=== PATIENT | female | born 1990 | race Caucasian/White ===

== ENCOUNTER 2022-02-17 15:03 | Outpatient (CLI) | payer MEDICAID, SELFPAY ==
[2022-02-19 17:29] LABS: Follicle Stimulating Hormone 6.2 IU/L; Luteinizing Hormone, Serum 14.4 IU/L
[2022-02-20 20:14] LABS: Estradiol Premenol Female 74 pg/mL
[2022-02-21 21:06] LABS: Anti-Mullerian Hormone 10.263 ng/mL (0.176-11.705)
== END 2022-02-17 15:04 | disposition home or self-care (01) ==
PROVIDERS: PCP Obstetrics & Gynecology; Visit Provider Obstetrics & Gynecology
DX: N97.0 Female infertility associated with anovulation (principal)
CPT/HCPCS: 82670; 83001; 83002; 83520

== ENCOUNTER 2022-03-07 15:56 | Outpatient (CLI) | payer MEDICAID, SELFPAY ==
[2022-03-12 08:34] LABS: Progesterone, HPLC-MS/MS < 0.10 ng/mL
== END 2022-03-07 15:57 | disposition home or self-care (01) ==
LOC: NFLDREF 15:57
PROVIDERS: PCP Obstetrics & Gynecology; Visit Provider Obstetrics & Gynecology
DX: Z31.69 Encounter for other general counseling and advice on procreation (principal)
CPT/HCPCS: 84144

== ENCOUNTER 2022-08-15 15:18 | Outpatient (CLI) | payer MEDICAID, SELFPAY ==
[2022-08-15 16:42] LABS: Glucose* 159 mg/dL (60-115)
[2022-08-15 18:38] LABS: Free T4 Free Thyroxine* 0.51 ng/dL (0.70-1.85)
[2022-08-18 05:19] LABS: Insulin, Random 47 uIU/mL
== END 2022-08-15 15:19 | disposition home or self-care (01) ==
PROVIDERS: PCP Obstetrics & Gynecology; Visit Provider Obstetrics & Gynecology
DX: R73.03 Prediabetes (principal); E28.2 Polycystic ovarian syndrome; E03.9 Hypothyroidism, unspecified
CPT/HCPCS: 82947; 83525; 84439; 84443

== ENCOUNTER 2024-09-19 09:54 | Outpatient (CLI) | payer BC, SELFPAY | END 2024-09-19 09:55 | disposition home or self-care (01) | LOC: US 09:57 | PROVIDERS: Visit Provider Obstetrics & Gynecology | DX: Z34.91 Encounter for supervision of normal pregnancy, unspecified, first trimester (principal); O20.9 Hemorrhage in early pregnancy, unspecified; Z3A.01 Less than 8 weeks gestation of pregnancy | CPT/HCPCS: 76817; 84702 ==

== ENCOUNTER 2024-09-19 11:05 | Outpatient (CLI) | payer BC, SELFPAY | END 2024-09-19 11:06 | disposition home or self-care (01) | LOC: NFLDREF 11:06 | PROVIDERS: Visit Provider Physician Assistant | DX: Z34.91 Encounter for supervision of normal pregnancy, unspecified, first trimester (principal) | CPT/HCPCS: 84702 ==

== ENCOUNTER 2024-09-22 10:05 | Outpatient (CLI) | payer BC, SELFPAY | END 2024-09-22 10:06 | disposition home or self-care (01) | LOC: NFLDREF 09-24 06:08 | PROVIDERS: Visit Provider Physician Assistant | DX: Z34.90 Encounter for supervision of normal pregnancy, unspecified, unspecified trimester (principal) | CPT/HCPCS: 84702 ==

== ENCOUNTER 2024-10-03 11:43 | Outpatient (CLI) | payer BC, SELFPAY | END 2024-10-03 11:44 | disposition home or self-care (01) | LOC: NFLDREF 11:44 | PROVIDERS: Visit Provider Registered Nurse | DX: Z01.818 Encounter for other preprocedural examination (principal) | CPT/HCPCS: 80048 ==

== ENCOUNTER 2024-10-13 08:00 | Outpatient (CLI) | payer BC, SELFPAY | END 2024-10-13 08:01 | disposition home or self-care (01) | LOC: NFLDREF 10-14 03:33 | PROVIDERS: Visit Provider Obstetrics & Gynecology | DX: O02.89 Other abnormal products of conception (principal) | CPT/HCPCS: 84702 ==

== ENCOUNTER 2024-10-24 14:00 | Outpatient (CLI) | payer BC, SELFPAY | END 2024-10-24 14:01 | disposition home or self-care (01) | PROVIDERS: Visit Provider Obstetrics & Gynecology | DX: O03.9 Complete or unspecified spontaneous abortion without complication (principal); E03.9 Hypothyroidism, unspecified | CPT/HCPCS: 84439; 84443; 84481; 84702; 86376; 86800 ==

== ENCOUNTER 2024-12-04 09:09 | Outpatient (CLI) | payer BC, SELFPAY | END 2024-12-04 09:10 | disposition home or self-care (01) | LOC: NFLDREF 12-16 07:02 | PROVIDERS: Visit Provider Obstetrics & Gynecology | DX: E03.9 Hypothyroidism, unspecified (principal) | CPT/HCPCS: 84439; 84443 ==

== ENCOUNTER 2025-02-09 11:26 | Outpatient (CLI) | payer BC, SELFPAY ==
--- NOTE | 2025-02-09 11:30 | CRLHL7_ITS ---
For Patients: As a result of the Century Cures Act, medical imaging exams and procedure reports are released immediately into your electronic medical record. You may view this report before your referring provider. If you have questions, please contact your health care provider. OB ULTRASOUND LESS THAN 14 WEEKS, 02/09/2025 CLINICAL HISTORY: Hemorrhage in early . Patient has been bleeding since 12/07/2024. COMPARISON: None. TECHNIQUE: Real time flaherty scale imaging of the fetus was performed. Transvaginal imaging performed. Transvaginal ultrasound of the pelvis was performed to better evaluate the genitourinary organs such as the ovaries and/or endometrium. FINDINGS: IMAGING: Transvaginal. LMP: 11/13/2024. TERRANCE by LMP: 08/20/2025. GA: 12 weeks 4 days. GEST SAC: 1.5 cm. YOLK SAC: N/V. RIGHT OV: N/V. LEFT OV: N/V. Endometrium: 3.0 cm. IMPRESSION: The endometrial cavity is diffusely heterogeneous with nonfocal color Doppler flow suggesting retained products. No pole is present. There is, however, a gestational sac measuring 1.5 cm. No subchorionic hemorrhage. Moises Ramos M.D. Diagnostic Radiologist [email or web address] Transcribed: 1:31 am DW/Dictated by: Moises Ramos MD @ 02/09/2025 12:21:00 PM (Electronically Signed)
== END 2025-02-09 11:27 | disposition home or self-care (01) ==
LOC: US 11:26
PROVIDERS: Visit Provider Physician Assistant
DX: O20.9 Hemorrhage in early pregnancy, unspecified (principal); O03.9 Complete or unspecified spontaneous abortion without complication
CPT/HCPCS: 76817

== ENCOUNTER 2025-02-09 12:01 | Outpatient (CLI) | payer BC, SELFPAY | END 2025-02-09 12:02 | disposition home or self-care (01) | PROVIDERS: Visit Provider Obstetrics & Gynecology | DX: O20.9 Hemorrhage in early pregnancy, unspecified (principal) | CPT/HCPCS: 84702 ==

== ENCOUNTER 2025-02-18 10:30 | Day surgery (SDC) | payer BC, SELFPAY ==
[2025-02-18] MEDS: DOXYCYCLINE HYCLATE 200 MG in 0.9 % SODIUM CHLORIDE 250 ml 250 ML 250 MG IVPB (10:50)
[2025-02-18] MEDS: SODIUM CHLORIDE 0.9 % (FLUSH) 10 ML SYRINGE IVF (10:50)
[2025-02-18] MEDS: LACTATED RINGERS 1000 ML 1,000 ML 100 ML IV (10:50)
[2025-02-18 10:52] VITALS: BP 115/76; PULSE 81; RESP 16; TEMP 36.9; O2SAT 96; BMI 57.1
--- NOTE | 2025-02-18 12:02 | CRLHL7_ITS ---
For Patients: As a result of the Century Cures Act, medical imaging exams and procedure reports are released immediately into your electronic medical record. You may view this report before your referring provider. If you have questions, please contact your health care provider. INDICATION: Preoperative evaluation COMPARISON: 02/09/2025 pelvic ultrasound TECHNIQUE: Sonographic evaluation of the pelvis was performed utilizing flaherty-scale and color Doppler imaging techniques. Transvaginal images were obtained to improve assessment of the adnexa and endometrium. FINDINGS: Contour irregularity at the lower uterine segment is compatible with a history of section. The uterus measures 11 x 6.5 centimeters. The uterus is anteverted. Thickened heterogeneous endometrial stripe measuring up to 2.5 centimeters. Possible slight internal vascular flow detected within the endometrial stripe. A small amount of focal fluid within the endometrial fundus with irregularly angulated borders may represent the remnant gestational sac, but no pole is detected. There are a few small nabothian cysts. There is trace pelvic free fluid. The ovaries were not visualized on the provided images. IMPRESSION: Findings concerning for retained products of conception as described. Dictated by Joselo Caceres MD @ 02/18/2025 12:59:37 PM (Electronically Signed)
--- NOTE | 2025-02-18 12:18 | P.ANES_ITS ---
Anesthesia Charges Start Date/Time Anesthesia Start Date: 02/18/25 Anesthesia Start Time: 12:32 Stop Date/Time Anesthesia Stop Date: 02/18/25 Anesthesia Stop Time: 13:14 Coding CPT Codes CPT Codes: ANESTH INC/MISSED AB PROC - 44093 ([id number]) P3 - PATIENT W/SEVERE SYS DISEASE, QK - HEALTH CARE COACH 2-4 CNCRNT ANES PROC, QX - APPLICATIONS SYSTEMS ENGINEER SVC W/ MD MED DIRECTION
--- NOTE | 2025-02-18 12:18 | W.ANESCHARGE ---
Anesthesia Charges Start Date/Time Anesthesia Start Date: 02/18/25 Anesthesia Start Time: 12:32 Stop Date/Time Anesthesia Stop Date: 02/18/25 Anesthesia Stop Time: 13:14 Coding CPT Codes CPT Codes: ANESTH INC/MISSED AB PROC - 65075 ([id number]) P3 - PATIENT W/SEVERE SYS DISEASE, QK - BOAT ENGINE MECHANIC 2-4 CNCRNT ANES PROC, QX - BUILDING ATTENDANT SVC W/ MD MED DIRECTION
[2025-02-18] MEDS: BUPIVACAINE 0.25% 30 ML INJECTION (12:56)
[2025-02-18] MEDS: LIDOCAINE 1% MDV 20 ML INJECTION (12:56)
[2025-02-18 13:10] VITALS: BP 139/85; PULSE 88; RESP 14; TEMP 36.5; O2SAT 99
--- NOTE | 2025-02-18 13:10 | P.GYNPRC_ITS ---
Procedure Note Date of procedure: 02/18/25 Will [facility] bill your pro fee for this procedure?: Yes Pre-op diagnosis: Retained products of conception following spontaneous . Post-op diagnosis: Same. Procedure: Suction curettage. Anesthesia: MAC and local (Paracervical block) Complications: None. Surgeon: Leeann Urean MD Estimated blood loss (mL): 5 Pathology: specimen obtained, sent to pathology (Products of conception.) Condition: stable Disposition: same day Findings: Small amount dark blood and tissue removed from the endometrial cavity. Procedure Description: The patient indicated to me just prior to surgery that she had passed a large clot following her clinical consult last week, and then had no further bleeding over the last few days. A pelvic ultrasound was ordered and performed which demonstrated possible retained products of conception still within the uterus. The decision was made to proceed with the planned surgical procedure. 100 mg of IV doxycycline was administered intravenously in preop. After confirming informed consent, the patient was taken to the operating room where she received monitored anesthesia care. She was prepared and draped in the normal, sterile fashion in the dorsal lithotomy position. An examination was performed under anesthesia which demonstrated a normal sized midposition uterus. An open-sided bivalve speculum was placed into the vagina and the cervix easily visualized. The anterior lip of the cervix was grasped with a single-tooth tenaculum for traction. A paracervical block was administered using a total of 20 mL of a 50:50 mixture of 1% lidocaine and 0.25% Marcaine, plain. A sound was gently inserted through the cervical os into the uterus to the level of the fundus. Sound length was 9 cm. The cervix was gently dilated using Hegar dilators to a #8 dilator. An 8 mm rigid, curved suction cannula was advanced through the cervical os into the uterine cavity. Gentle suction was applied, and the uterine lining gently curetted. A small amount of products of conception and blood was removed. The suction cannula was removed. The uterine lining was gently explored using a sharp curette, and a gritty feel was felt throughout. One final pass was made with the suction cannula, no further tissue was recovered. All instruments were then removed. The patient tolerated the procedure well. Sponge, lap, and needle counts were reported as correct x2. Toradol 30 mg IV was administered for postoperative pain control. The patient was taken to the recovery room awake and in stable condition.
--- NOTE | 2025-02-18 13:13 | P.ANES_ITS ---
Anesthesia Charges Start Date/Time Anesthesia Start Date: 02/18/25 Anesthesia Start Time: 12:32 Stop Date/Time Anesthesia Stop Date: 02/18/25 Anesthesia Stop Time: 13:14 Coding CPT Codes CPT Codes: ANESTH VAGINAL PROCEDURES - 50020 ([id number]) P3 - PATIENT W/SEVERE SYS DISEASE, QK - IRON PILER 2-4 CNCRNT ANES PROC, QX - TELECOM FIELD TECHNICIAN SVC W/ MD MED DIRECTION
--- NOTE | 2025-02-18 13:13 | W.ANESCHARGE ---
Anesthesia Charges Start Date/Time Anesthesia Start Date: 02/18/25 Anesthesia Start Time: 12:32 Stop Date/Time Anesthesia Stop Date: 02/18/25 Anesthesia Stop Time: 13:14 Coding CPT Codes CPT Codes: ANESTH VAGINAL PROCEDURES - 88654 ([id number]) P3 - PATIENT W/SEVERE SYS DISEASE, QK - DIE KEEPER 2-4 CNCRNT ANES PROC, QX - EDITOR CONTINUITY AND SCRIPT SVC W/ MD MED DIRECTION
[2025-02-18 13:15] VITALS: BP 130/80; PULSE 78; RESP 14; O2SAT 100
[2025-02-18 13:30] VITALS: BP 107/80; PULSE 70; RESP 14; TEMP 36.6; O2SAT 96
== END 2025-02-18 13:50 | disposition home or self-care (01) ==
LOC: OR 10:32
PROVIDERS: PCP Student in an Organized Health Care Education/Training Program; Visit Provider Obstetrics & Gynecology
PROC: (CPT 59812; principal; 2025-02-18 12:00)
DX: O03.4 Incomplete spontaneous abortion without complication (principal)
CPT/HCPCS: 59812; 00940; 01965; 76817; J2003; J0665; J1100; J1885; J2250; J2405; J2704; J3010; J3490; J7050; J7120

== ENCOUNTER 2025-03-04 10:42 | Outpatient (CLI) | payer BC, SELFPAY | END 2025-03-04 10:43 | disposition home or self-care (01) | LOC: NFLDREF 10:43 | PROVIDERS: PCP Student in an Organized Health Care Education/Training Program; Visit Provider Obstetrics & Gynecology | DX: E03.9 Hypothyroidism, unspecified (principal); R73.03 Prediabetes; E66.01 Morbid (severe) obesity due to excess calories; Z68.44 Body mass index [BMI] 60.0-69.9, adult | CPT/HCPCS: 84439; 84443 ==